=== PATIENT | female | born 1955 | race Asian ===

== ENCOUNTER 2017-08-16 00:39 | Observation (INO) | payer MEDICAID ==
[~2017-08-16] VITALS: Ht 162.6 cm; Wt 99.4 kg
[~2017-08-16 00:39] MED LIST: CHOL20002 PO; DULO30CA2 PO; FISH OIL PO; HERBAL SUPPLEMENTS PO; LEVO75TA5 PO
[2017-08-16] MEDS ORDERED: CHARCOAL/SORBITOL 50 GM/240 ML PO ONE (01:30)
[2017-08-16 01:35] LABS: BASOPHILS # (AUTO) 0.05 x10^3/uL (0-0.1); BASOPHILS % (AUTO) 1 % (0-1); EOSINOPHILS # (AUTO) 0.14 x10^3/uL (0-0.4); EOSINOPHILS % (AUTO) 2 % (1-7); LYMPHOCYTES # (AUTO) 2.76 x10^3/uL (1-3.4); LYMPHOCYTES % (AUTO) 32 % (22-44); MD NO; MEAN CORPUSCULAR HEMOGLOBIN 18.6 pg (27.0-34.8); MEAN CORPUSCULAR HGB CONC 31.2 g/dL (32.4-35.8); MEAN CORPUSCULAR VOLUME 59.6 fL (80-100); MEAN PLATELET VOLUME 7.9 fL (7.4-10.4); MONOCYTES # (AUTO) 0.73 x10^3/uL (0.2-0.8); MONOCYTES % (AUTO) 8 % (2-9); NEUTROPHILS # (AUTO) 4.95 x10^3/uL (1.8-6.8); NEUTROPHILS % (AUTO) 57 % (42-75); PLATELET COUNT 256 x10^3/uL (130-400); RED BLOOD COUNT 6.72 x10^6/uL (3.82-5.3); RED CELL DISTRIBUTION WIDTH 17.3 % (9.6-15.2)
[2017-08-16] MEDS ORDERED: CHARCOAL/SORBITOL 50 GM/240 ML ONE (01:38)
[2017-08-16] MEDS ORDERED: ONDANSETRON ODT 4 MG ONE (01:41)
[2017-08-16 01:47] LABS: ALANINE AMINOTRANSFERASE 38 U/L (12-78); ALBUMIN 3.5 g/dL (3.4-5.0); ANION GAP 5 mmol/L (5-15); CALCIUM 9.1 mg/dL (8.5-10.1); CHLORIDE 105 mmol/L (98-107)
[2017-08-16 01:49] LABS: ALKALINE PHOSPHATASE 127 U/L (45-117); BILIRUBIN,TOTAL 0.3 mg/dL (0.2-1.0); CREATININE 1.22 mg/dL (0.55-1.02)
[2017-08-16 01:50] LABS: ACETAMINOPHEN < 2 mcg/mL (10-30); SALICYLATE LEVEL < 1.7 mg/dL (2.8-20.0)
[2017-08-16] MEDS ORDERED: CYCL5TAB PO (01:56)
[2017-08-16] MEDS ORDERED: SERT100T PO (01:56)
[2017-08-16] MEDS ORDERED: TRAM100T3 PO (01:56)
[2017-08-16] MEDS ORDERED: ONDANSETRON ODT 4 MG PO ONE (02:00)
[2017-08-16] MEDS ORDERED: SODIUM CHLORIDE 0.9% 1,000 ML IV ONE (03:41)
[2017-08-16 03:48] LABS: AMPHETAMINE SCREEN, URINE Negative (Negative); BARBITURATE SCREEN, URINE Negative (Negative); BENZODIAZEPINE SCREEN, URINE Negative (Negative); CANNABINOID SCREEN, URINE Negative (Negative); COCAINE SCREEN, URINE Negative (Negative); METHADONE SCREEN, URINE Negative (Negative); OPIATE SCREEN, URINE Negative (Negative)
[2017-08-16] MEDS ORDERED: ACETAMINOPHEN 325 MG TABLET PO PRN (04:00)
[2017-08-16] MEDS ORDERED: ONDANSETRON 2MG/ML, 2ML IVPush PRN (04:00)
[2017-08-16] MEDS ORDERED: SODIUM CHLORIDE 0.9% 1,000ML IVBOLUS ONE (05:00)
[2017-08-16] MEDS ORDERED: HEPARIN 5,000 UNITS/ML, 1ML ONE (05:23)
[2017-08-16] MEDS: HEPARIN 5,000 UNITS/ML, 1ML SQ SCH ×2 (05:26→12:00)
[2017-08-16 06:35] VITALS: BP 108/72
[2017-08-16 07:22] VITALS: BP 125/79
[2017-08-16] MEDS ORDERED: LEVOTHYROXINE 75 MCG TABLET PO SCH (09:00)
[2017-08-16] MEDS ORDERED: CHOLECALCIFEROL 1,000 UNIT TABLET PO SCH (09:00)
[2017-08-16 12:37] LABS: ANION GAP 3 mmol/L (5-15); CALCIUM 8.5 mg/dL (8.5-10.1); CHLORIDE 107 mmol/L (98-107); CREATININE 1.08 mg/dL (0.55-1.02)
== END 2017-08-16 15:10 | disposition home or self-care (01) ==
LOC: ED 02:58 → EDIP 03:42 → INTOOBSV 03:42 → 4EST 06:13 → UNDODISIN 15:10
PROVIDERS: ADMIT Family Medicine; ATTEND Family Medicine
DX: T43.221A Poisoning by selective serotonin reuptake inhibitors, accidental (unintentional), initial encounter (principal); N18.3 Chronic kidney disease, stage 3 (moderate); K21.9 Gastro-esophageal reflux disease without esophagitis; E03.9 Hypothyroidism, unspecified; E78.5 Hyperlipidemia, unspecified; D56.3 Thalassemia minor; G89.29 Other chronic pain; F32.9 Major depressive disorder, single episode, unspecified; M19.90 Unspecified osteoarthritis, unspecified site; E66.9 Obesity, unspecified; G44.209 Tension-type headache, unspecified, not intractable; F41.9 Anxiety disorder, unspecified; H26.9 Unspecified cataract; R73.03 Prediabetes; Y92.89 Other specified places as the place of occurrence of the external cause; Z90.5 Acquired absence of kidney
CPT/HCPCS: 36415; 80048; 80053; 80307; 80329; 83735; 84100; 85025; 93005; 96372; 99285; G0378; J1644; J7030; Q0162; G0479; G0480